=== PATIENT | male | born 1980 | race Caucasian/White ===

== ENCOUNTER 2018-12-21 06:56 | Emergency (ER) | payer OTHER ==
[~2018-12-21] VITALS: Ht 180.3 cm; Wt 86.2 kg
[2018-12-21 07:00] VITALS: BP 127/77
[2018-12-21] MEDS ORDERED: PROM118S9 PO (07:47)
[2018-12-21] MEDS ORDERED: BENZ100C PO (07:47)
--- NOTE | 2018-12-21 07:47 | PHYS DOC ---
Past History Past Medical History: Other Additional Past Medical Histor: chronic neck pain Smoking: Non-smoker Alcohol Use: Occasionally Drug Use: None Adult General Chief Complaint Chief Complaint: COUGH HPI HPI Patient is a 38-year-old male with nasal congestion, postnasal drainage, and cough for the past 3-4 days. Patient has a sick daughter who had similar symptoms. His daughter was not placed on any antibiotics. Denies any fever. No significant improvement with NyQuil or DayQuil. No nausea or vomiting. Left worse than right year pressure. Symptoms are moderate in intensity.[] Review of Systems Review of Systems Constitutional: Denies fever or chills [] Eyes: Denies change in visual acuity, redness, or eye pain [] HENT: See history of present illness[] Respiratory: Denies shortness of breath, cough from postnasal drainage. [] Cardiovascular: No chest pain or palpitations[] GI: Denies abdominal pain, nausea, vomiting, bloody stools or diarrhea [] : Denies dysuria or hematuria [] Musculoskeletal: Denies back pain or joint pain [] Integument: Denies rash or skin lesions [] Neurologic: Denies headache, focal weakness or sensory changes [] Endocrine: Denies polyuria or polydipsia [] All other systems were reviewed and found to be within normal limits, except as documented in this note. Physical Exam Physical Exam Constitutional: Well developed, well nourished, no acute distress, non-toxic appearance. [] HENT: Normocephalic, atraumatic, bilateral external ears normal, TMs are clear without any fluid or retraction or bulging. Oropharynx moist, no oral exudates, nose normal. [] Eyes: PERRLA, EOMI, conjunctiva normal, no discharge. [] Neck: Normal range of motion, no tenderness, supple, no stridor. No cervical lymphadenopathy[] Cardiovascular:Heart rate regular rhythm, no murmur [] Lungs & Thorax: Bilateral breath sounds clear to auscultation [] Abdomen: Bowel sounds normal, soft, no tenderness, no masses, no pulsatile masses. [] Skin: Warm, dry, no erythema, no rash. [] Back: No tenderness, no CVA tenderness. [] Extremities: No tenderness, no cyanosis, no clubbing, ROM intact, no edema. [] Neurologic: Alert and oriented X 3, normal motor function, normal sensory f unction, no focal deficits noted. [] Psychologic: Affect normal, judgement normal, mood normal. [] EKG EKG [] Radiology/Procedures Radiology/Procedures [] Course & Med Decision Making Course & Med Decision Making Pertinent Labs and Imaging studies reviewed. (See chart for details) ED course: Patient arrived, was placed in bed, and tolerated exam well. Running some plan were discussed with the patient who voiced understanding. All questions were answered. He was discharged in improved condition. Medical decision making: Patient has an upper respiratory infection. No evidence of pneumonia, pneumothorax, sinusitis, mastoiditis, nor systemic toxicity requiring antibiotics. [] Dragon Disclaimer Dragon Disclaimer This electronic medical record was generated, in whole or in part, using a voice recognition dictation system. Departure Departure: Impression: Primary Impression: Upper respiratory infection Disposition: HOME, SELF-CARE Condition: IMPROVED Referrals: BRANDO HERNANDEZ PA-C (PCP) Follow-up in 2 days Patient Instructions: Upper Respiratory Infection, Adult Additional Instructions: Drink plenty of fluids. Follow-up with your regular doctor in 2 days. Return to the ER if difficulty breathing or any other concerns. Scripts Benzonatate (TESSALON PERLE) 100 Mg Capsule 1 CAP PO TID for cough, #30 CAP Prov: SHIRLENE SALDIVAR DO 12/21/18 D-Methorphan Hb/Prometh Hcl (PROMETHAZINE-DM SYRUP) 118 Ml Syrup 5 ML PO PRN Q4HRS for CONGESTION, #120 ML Prov: SHIRLENE SALDIVAR DO 12/21/18 Problem Qualifiers Primary Impression: Upper respiratory infection URI type: unspecified URI Qualified Codes: J06.9 - Acute upper respiratory infection, unspecified SHIRLENE SALDIVAR DO Dec 21, 2018 07:47
== END 2018-12-21 07:54 | disposition home or self-care (01) ==
LOC: ER 06:56
DX: J06.9 Acute upper respiratory infection, unspecified (principal); G89.29 Other chronic pain; M54.2 Cervicalgia
CPT/HCPCS: 99283